=== PATIENT | male | born 1990 | race African-American/Black ===

== ENCOUNTER 2024-11-01 13:52 | Emergency (ER) | payer MEDICAID ==
[~2024-11-01] VITALS: Ht 170.2 cm; Wt 55.0 kg
[2024-11-01 14:08] VITALS: BP 130/84; PULSE 64; RESP 18; TEMP 36.5; O2SAT 99
== END 2024-11-01 15:30 | disposition home or self-care (01) ==
LOC: ER 13:52
DX: S01.81XA Laceration without foreign body of other part of head, initial encounter (principal); W19.XXXA Unspecified fall, initial encounter; Y93.01 Activity, walking, marching and hiking; Y92.89 Other specified places as the place of occurrence of the external cause; Y99.8 Other external cause status
CPT/HCPCS: 99283

== ENCOUNTER 2024-11-28 16:20 | Emergency (ER) | payer MEDICAID ==
[~2024-11-28] VITALS: Ht 170.2 cm; Wt 59.0 kg
[2024-11-28 16:28] VITALS: O2SAT 100
[2024-11-28 18:17] LABS: *AMPHETAMINES SCREEN URINE NEGATIVE (NEGATIVE); *BARBITURATES SCREEN URINE NEGATIVE (NEGATIVE); *BENZODIAZEPINES SCREEN URINE NEGATIVE (NEGATIVE); *COCAINE SCREEN URINE NEGATIVE (NEGATIVE)
[2024-11-28 18:18] LABS: CANNABINOID URINE SCREEN PRESUMPTIVE POSITIVE (NEGATIVE); ECSTASY MDMA SCREEN URINE NEGATIVE (NEGATIVE); METHADONE URINE SCREEN NEGATIVE (NEGATIVE); OPIATES URINE SCREEN NEGATIVE (NEGATIVE); PHENCYCLIDINE URINE SCREEN NEGATIVE (NEGATIVE)
[2024-11-28 18:20] LABS: BASOPHILS % 0.2 % (0.0-2.0); EOSINOPHILS % 1.2 % (0.0-5.0); HEMATOCRIT. 43.4 % (42.0-52.0); HEMOGLOBIN. 14.3 g/dL (14.0-18.0); MEAN CORPUSCULAR HEMOGLOBIN 27.8 pg (28.0-32.0); MEAN CORPUSCULAR VOLUME 84.1 fL (80.0-94.0); MEAN PLATELET VOLUME 8.5 fl (7.4-10.4); MONOCYTES % 8.5 % (2.0-8.0); NEUTROPHILS % 75.1 % (40.0-76.0); PLATELET 309 x1000/uL (130-400); RED BLOOD CELL COUNT 5.16 mill/uL (4.7-6.1); RED CELL DISTRIBUTION WIDTH 13.3 % (11.6-14.6); WHITE BLOOD COUNT 11.8 x1000/uL (4.5-11.0)
[2024-11-28 18:28] LABS: CHLORIDE 99 mEq/L (98-107); POTASSIUM 4.1 mEq/L (3.5-5.1); SODIUM 136 mEq/L (136-145)
[2024-11-28 18:29] LABS: CALCIUM 9.7 mg/dL (8.7-10.4); CARBON DIOXIDE 29 mEq/L (21-32)
[2024-11-28] MEDS: IBUPROFEN 600MG TABLET PO STA (18:31)
[2024-11-28] MEDS: ACETAMINOPHEN 325MG TABLET PO STA (18:32)
[2024-11-28 18:34] LABS: CREATININE 0.7 mg/dL (0.6-1.3); GLUCOSE 89 mg/dL (70-105); UREA NITROGEN BLOOD 7 mg/dL (9-23)
[2024-11-28] MEDS ORDERED: AMOX1TAB16 MT (18:40)
[2024-11-28 18:52] VITALS: BP 138/85; PULSE 73; RESP 14; TEMP 36.6; O2SAT 100
== END 2024-11-28 18:53 | disposition home or self-care (01) ==
LOC: ER 16:20
DX: K02.9 Dental caries, unspecified (principal); F17.210 Nicotine dependence, cigarettes, uncomplicated
CPT/HCPCS: 36415; 80048; 80305; 85025; 99283